=== PATIENT | male | born 1945 | race Asian ===

== ENCOUNTER 2017-02-22 00:15 | Emergency (ER) | payer MEDICARE, OTHER ==
[~2017-02-22] VITALS: Ht 160 cm; Wt 74.6 kg
[2017-02-22 00:27] LABS: GLUCOSE,POINT OF CARE 106 MG/DL (70-110)
[2017-02-22] MEDS ORDERED: ASPI-1182 PO (00:28)
[2017-02-22] MEDS ORDERED: IBUP-2071 PO (00:28)
[2017-02-22] MEDS ORDERED: VALS160T2 PO (00:28)
[2017-02-22] MEDS ORDERED: ATOR40TA28 PO (00:28)
[2017-02-22 01:09] LABS: BASOPHILS % (AUTO) 0.2 % (0.0-2.0); HEMATOCRIT 42.2 % (41-53); HEMOGLOBIN 14.6 g/dL (13.5-17.5); LYMPHOCYTES # (AUTO) 1.2 K/uL (1.0-4.8); LYMPHOCYTES % (AUTO) 10.4 % (22.0-44.0); MEAN CORPUSCULAR HEMOGLOBIN 31.3 pg (26.0-34.0); MEAN CORPUSCULAR HGB CONC 34.7 G/dL (31.0-37.0); MEAN CORPUSCULAR VOLUME 90 fL (80-100); MONOCYTES # (AUTO) 0.6 K/uL (0.1-1.0); MONOCYTES % (AUTO) 5.4 % (2.0-9.0); NEUTROPHILS # (AUTO) 9.4 K/uL (1.8-7.7); PLATELET COUNT (AUTO) 397 K/uL (150-450); RED BLOOD CELL COUNT(AUTO) 4.68 MIL/uL (4.50-5.90); RED CELL DISTRIBUTION WIDTH 13.4 % (11.5-14.5)
[2017-02-22 01:41] LABS: CALCIUM, TOTAL 8.4 mg/dL (8.8-10.5); CREATININE 1.38 mg/dL (0.60-1.30); POTASSIUM 3.3 mmol/L (3.5-5.1)
[2017-02-22 01:46] LABS: ALBUMIN 3.5 g/dL (3.4-5.0); BILIRUBIN,TOTAL 0.6 mg/dL (0.1-1.0); TOTAL PROTEIN, SERUM 6.8 g/dL (6.4-8.2)
[2017-02-22] MEDS ORDERED: DONNATAL/LIDOCAINE/MAALOX 55 ML BOTTLE PO ONE (04:00)
[2017-02-22 04:43] LABS: APPEARANCE,URINE CLEAR (CLEAR); BILIRUBIN,URINE NEGATIVE (NEGATIVE); GLUCOSE, URINE (UA) NEGATIVE (NEGATIVE); KETONES,URINE NEGATIVE (NEGATIVE); LEUKOCYTE ESTERASE ,URINE NEGATIVE (NEGATIVE); NITRATE,URINE NEGATIVE (NEGATIVE); OCCULT BLOOD,URINE NEGATIVE (NEGATIVE); PROTEIN,URINE NEGATIVE (NEGATIVE); UROBILINOGEN,URINE 0.2 mg/dL (<=1.0)
[2017-02-22] MEDS ORDERED: 0.9% SODIUM CHLORIDE 10 ML SYRINGE IVP PRN (05:45)
[2017-02-22] MEDS ORDERED: ACETAMINOPHEN 325 MG TABLET PO PRN (05:45)
[2017-02-22] MEDS ORDERED: ONDANSETRON HCL 4 MG/2 ML VIAL IVP PRN (05:45)
[2017-02-22 13:58] VITALS: BP 112/61
== END 2017-02-22 14:52 | disposition left against medical advice (07) ==
LOC: EMS 00:18
DX: R00.1 Bradycardia, unspecified (principal); R11.2 Nausea with vomiting, unspecified; E78.00 Pure hypercholesterolemia, unspecified; F17.210 Nicotine dependence, cigarettes, uncomplicated; Z86.73 Personal history of transient ischemic attack (TIA), and cerebral infarction without residual deficits; Z79.82 Long term (current) use of aspirin
CPT/HCPCS: 74022; 82962; 93005; 99291

== ENCOUNTER 2024-09-21 14:35 | Inpatient (IN) | payer OTHER ==
[~2024-09-21] VITALS: Ht 160 cm; Wt 62.2 kg
[2024-09-21] VITALS (13 sets, daily range): BP systolic 97–170; BP diastolic 29–111; PULSE 42–54; RESP 18; TEMP 98–98.2; O2SAT 9–99
[~2024-09-21 14:35] MED LIST: AMLO5TAB66 PO; ASPI-1444 PO; CLOP75TA32 PO; MECL-302 PO; ROSU40TA88 PO
[2024-09-21 15:26] LABS: PLATELET COUNT (AUTO) 323 K/uL (150-450); RED BLOOD CELL COUNT(AUTO) 4.92 MIL/uL (4.50-5.90); RED CELL DISTRIBUTION WIDTH 13.6 % (11.5-14.5); WHITE BLOOD COUNT (AUTO) 4.5 K/uL (4.5-11.0)
[2024-09-21 15:33] LABS: CALCIUM, TOTAL 9.1 mg/dL (8.8-10.5); CREATININE 1.35 mg/dL (0.60-1.30); GLOMERULAR FILTR. RATE CALC 51 mL/min (>60); GLUCOSE,RANDOM 114 mg/dL (70-110); SODIUM SERUM 137 mmol/L (136-145); UREA NITROGEN, BLOOD 14 mg/dL (7-18)
[2024-09-21 15:45] LABS: TROPONIN I-HIGH SENSITIVITY 186 ng/L (<76)
[2024-09-21] MEDS: NITROGLYCERIN 0.4 MG SUBLINGUAL TABLET #25 SL ONE (15:58)
[2024-09-21] MEDS ORDERED: DAPA10TA PO (16:56)
[2024-09-21] MEDS ORDERED: AMLO10TA55 PO (16:56)
[2024-09-21] MEDS ORDERED: MORPHINE SULFATE 2 MG/ML SYRINGE IVP PRN ×2 (17:15)
[2024-09-21] MEDS ORDERED: BISACODYL 10 MG RECTAL RECTAL SUPPOSITORY PR PRN (17:15)
[2024-09-21] MEDS ORDERED: ZOLPIDEM TARTRATE 5 MG TABLET PO PRN (17:15)
[2024-09-21] MEDS ORDERED: ALBUTEROL SULFATE 2.5 MG/0.5 ML NEB SOLUTION NEB PRN (17:15)
[2024-09-21] MEDS ORDERED: MAGNESIUM HYDROXIDE SUSPENSION 30 ML UDCUP PO PRN ×2 (17:15)
[2024-09-21] MEDS ORDERED: IPRATROPIUM BROMIDE 0.5 MG/2.5 ML NEB SOLUTION NEB PRN ×2 (17:15)
[2024-09-21] MEDS ORDERED: ACETAMINOPHEN 325 MG TABLET PO PRN (17:15)
[2024-09-21] MEDS ORDERED: ZOLPIDEM TARTRATE 10 MG TABLET PO PRN (17:15)
[2024-09-21] MEDS ORDERED: ONDANSETRON HCL 4 MG/2 ML VIAL IVP PRN ×2 (17:15)
[2024-09-21] MEDS ORDERED: HYDROCODONE/ACETAMINOPHEN 5-325 MG TABLET PO PRN (17:15)
[2024-09-21] MEDS: NITROGLYCERIN 2% (1 GM=INCH) OINTMENT PACKET TP SCH (17:30)
[2024-09-21 17:40] LABS: APPEARANCE,URINE CLEAR (CLEAR); GLUCOSE, URINE (UA) NEGATIVE (NEGATIVE); LEUKOCYTE ESTERASE ,URINE NEGATIVE (NEGATIVE); NITRATE,URINE NEGATIVE (NEGATIVE); OCCULT BLOOD,URINE NEGATIVE (NEGATIVE); SPECIFIC GRAVITIY, URINE 1.008 (1.003-1.030)
[2024-09-21 18:00] LABS: TROPONIN I-HIGH SENSITIVITY 1146 ng/L (<76)
[2024-09-21] MEDS ORDERED: HEPARIN SODIUM,PORCINE 5,000 UNITS/ML VIAL IVP ONE ×2 (18:15→20:45)
[2024-09-21] MEDS ORDERED: HEPARIN SODIUM,PORCINE 5,000 UNITS/ML VIAL IVP PRN ×6 (18:15→20:45)
[2024-09-21] MEDS ORDERED: HEPARIN SODIUM 25000 UNITS/D5W 250 ML IV PRN ×2 (18:15→20:45)
[2024-09-21] MEDS: NITROGLYCERIN 0.4 MG SUBLINGUAL TABLET #25 SL PRN (18:40)
[2024-09-21] MEDS ORDERED: LIDOCAINE/PF 1% 30 ML VIAL ONE (19:09)
[2024-09-21] MEDS ORDERED: HEPARIN SODIUM 1000 UNITS/NS 1,000 ML ONE (19:09)
[2024-09-21] MEDS ORDERED: IOHEXOL 300 MG/ML 100 ML VIAL ONE (19:09)
[2024-09-21] MEDS ORDERED: SODIUM BICARBONATE 50 MEQ/50 ML VIAL ONE (19:09)
[2024-09-21] MEDS: HEPARIN SODIUM,PORCINE 5,000 UNITS/ML VIAL IVP ONE (19:30)
[2024-09-21] MEDS ORDERED: MIDAZOLAM HCL 2 MG/2 ML VIAL ONE (19:31)
[2024-09-21] MEDS ORDERED: FentaNYL CITRATE PF 100 MCG/2 ML VIAL ONE (19:31)
[2024-09-21] MEDS ORDERED: HEPARIN SODIUM 1000 UNITS/NS 500 ML ONE (19:34)
[2024-09-21] MEDS: LIDOCAINE 1% 30 ML/SOD BICARB 8.4% 4 ML SQ ONE (19:49)
[2024-09-21] MEDS: IOHEXOL 300 MG/ML 100 ML VIAL ICOR ONE (19:49)
[2024-09-21] MEDS: HEPARIN SODIUM 1000 UNITS/NS 1,000 ML IARTER ONE (19:50)
[2024-09-21] MEDS: MIDAZOLAM HCL 2 MG/2 ML VIAL IVP ONE (19:50)
[2024-09-21] MEDS: FentaNYL CITRATE PF 100 MCG/2 ML VIAL IVP ONE (19:50)
[2024-09-21] MEDS: HEPARIN SODIUM,PORCINE 1,000 UNITS/ML 10 ML VIAL IVP ONE (20:18)
[2024-09-21] MEDS: DOCUSATE SODIUM 100 MG CAPSULE PO SCH (21:00)
[2024-09-21 21:17] LABS: PLATELET COUNT (AUTO) 297 K/uL (150-450); RED BLOOD CELL COUNT(AUTO) 4.57 MIL/uL (4.50-5.90); RED CELL DISTRIBUTION WIDTH 13.8 % (11.5-14.5); WHITE BLOOD COUNT (AUTO) 7.2 K/uL (4.5-11.0)
[2024-09-21] MEDS: HEPARIN SODIUM 25000 UNITS/D5W 250 ML IV PRN (21:31)
[2024-09-22] VITALS (16 sets, daily range): BP systolic 105–142; BP diastolic 58–78; PULSE 40–60; RESP 12–19; TEMP 97.9–98.6; O2SAT 96–100
[2024-09-22] MEDS ORDERED: HEPARIN SODIUM,PORCINE 5,000 UNITS/ML VIAL SQ SCH
[2024-09-22 00:09] LABS: TROPONIN I-HIGH SENSITIVITY 8529 ng/L (<76)
[2024-09-22 04:39] LABS: PLATELET COUNT (AUTO) 304 K/uL (150-450); RED BLOOD CELL COUNT(AUTO) 4.50 MIL/uL (4.50-5.90); RED CELL DISTRIBUTION WIDTH 13.8 % (11.5-14.5); WHITE BLOOD COUNT (AUTO) 7.0 K/uL (4.5-11.0)
[2024-09-22 04:56] LABS: CHOL/HDL RATIO 2.1 (4.2-7.3); LDL CHOL (CALC.) 56.0 mg/dL (0-130)
[2024-09-22 05:21] LABS: CALCIUM, TOTAL 8.9 mg/dL (8.8-10.5); CREATININE 1.16 mg/dL (0.60-1.30); GLOMERULAR FILTR. RATE CALC > 60 mL/min (>60); GLUCOSE,RANDOM 97 mg/dL (70-110); SODIUM SERUM 142 mmol/L (136-145); UREA NITROGEN, BLOOD 12 mg/dL (7-18)
[2024-09-22 05:37] LABS: TROPONIN I-HIGH SENSITIVITY 23116 ng/L (<76)
[2024-09-22] MEDS: PANTOPRAZOLE SODIUM 40 MG/VIAL IVP SCH (08:18)
[2024-09-22] MEDS: ASPIRIN 81 MG DR TABLET PO SCH (08:19)
[2024-09-22] MEDS: DAPAGLIFLOZIN PROPANEDIOL 5 MG TABLET PO SCH (08:20)
[2024-09-22] MEDS: ROSUVASTATIN CALCIUM 20 MG TABLET PO SCH (08:22)
[2024-09-22] MEDS ORDERED: PANTOPRAZOLE SODIUM 40 MG DR TABLET PO SCH (09:00)
[2024-09-22] MEDS ORDERED: CLOPIDOGREL BISULFATE 75 MG TABLET PO SCH (09:00)
[2024-09-22] MEDS: CLOPIDOGREL BISULFATE 75 MG TABLET PO SCH (12:29)
[2024-09-22] MEDS: ACETAMINOPHEN 325 MG TABLET PO PRN (16:23)
[2024-09-22 17:34] LABS: TROPONIN I-HIGH SENSITIVITY 10694 ng/L (<76)
[2024-09-22] MEDS: HYDROCODONE/ACETAMINOPHEN 5-325 MG TABLET PO PRN (17:37)
[2024-09-23] VITALS (9 sets, daily range): BP systolic 88–129; BP diastolic 30–79; PULSE 39–55; RESP 15–20; TEMP 98–98.3; O2SAT 96–100
[2024-09-23 06:22] LABS: PLATELET COUNT (AUTO) 278 K/uL (150-450); RED BLOOD CELL COUNT(AUTO) 4.25 MIL/uL (4.50-5.90); RED CELL DISTRIBUTION WIDTH 13.8 % (11.5-14.5); WHITE BLOOD COUNT (AUTO) 6.4 K/uL (4.5-11.0)
[2024-09-23 06:24] LABS: CALCIUM, TOTAL 9.7 mg/dL (8.8-10.5); CREATININE 1.53 mg/dL (0.60-1.30); GLOMERULAR FILTR. RATE CALC 44.0 mL/min (>60); GLUCOSE,RANDOM 101.0 mg/dL (70-110); SODIUM SERUM 139.0 mmol/L (136-145); UREA NITROGEN, BLOOD 14.0 mg/dL (7-18)
[2024-09-23 06:31] LABS: TROPONIN I-HIGH SENSITIVITY 4834 ng/L (<76)
[2024-09-23] MEDS ORDERED: CLOP75TA83 PO (16:39)
== END 2024-09-23 17:20 | disposition home or self-care (01) | DRG 282 ==
LOC: EMS 14:36 → EDH 16:26 → 5S 18:07 → ICU 18:57
PROVIDERS: ADMIT Hospitalist; ATTEND Hospitalist
PROC: 4A023N7 Measurement of Cardiac Sampling and Pressure, Left Heart, Percutaneous Approach (ICD-10-PCS; principal; 2024-09-21)
PROC: B2111ZZ Fluoroscopy of Multiple Coronary Arteries using Low Osmolar Contrast (ICD-10-PCS; 2024-09-21)
DX: I21.4 Non-ST elevation (NSTEMI) myocardial infarction (principal); I25.10 Atherosclerotic heart disease of native coronary artery without angina pectoris; I12.9 Hypertensive chronic kidney disease with stage 1 through stage 4 chronic kidney disease, or unspecified chronic kidney disease; E78.00 Pure hypercholesterolemia, unspecified; N18.9 Chronic kidney disease, unspecified; E11.22 Type 2 diabetes mellitus with diabetic chronic kidney disease; Z87.891 Personal history of nicotine dependence; Z86.73 Personal history of transient ischemic attack (TIA), and cerebral infarction without residual deficits; Z95.5 Presence of coronary angioplasty implant and graft; Z79.01 Long term (current) use of anticoagulants; Z79.82 Long term (current) use of aspirin; Z79.899 Other long term (current) drug therapy
CPT/HCPCS: 71045; 80048; 80061; 81003; 83880; 84484; 85025; 85610; 85730; 87081; 93005; 93306; 99285; J1644; J2250; J2470; J3010; J3490; Q9967; 36415-L1; 36415-TC